=== PATIENT | female | born 1985 | race American Indian/Alaskan Native ===

== ENCOUNTER 2017-02-11 13:29 | Emergency (ER) | payer BC, MEDICAID ==
[2017-02-11 13:44] VITALS: BP 128/72
--- NOTE | 2017-02-11 14:34 | Cat Scan Report ---
FINAL REPORT EXAM: CT HEAD/BRAIN WO CON HISTORY: HEAD INJURY / DIZZINESS TECHNIQUE: CT examination of the head without IV contrast PRIORS: None. FINDINGS: Mastoid air cells and middle ear cavities are clear. No acute air-fluid level visualized in the included air-filled sinuses. Bone windows demonstrate no fracture. The brain is without mass, mass effect, hemorrhage, or acute infarct. There is no extra-axial intracranial bleed, brain bleed, or midline shift. The ventricles and sulci are age-appropriate. IMPRESSION: No acute CVA, intracranial bleed, or brain mass
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
== END 2017-02-11 15:23 | disposition home or self-care (01) ==
LOC: ED 13:29
DX: R51 Headache (principal); M43.6 Torticollis; J45.909 Unspecified asthma, uncomplicated; D64.9 Anemia, unspecified; Z87.891 Personal history of nicotine dependence; Z88.0 Allergy status to penicillin; V48.3XXA Unspecified car occupant injured in noncollision transport accident in nontraffic accident, initial encounter; Y93.89 Activity, other specified; Y99.8 Other external cause status; Y92.488 Other paved roadways as the place of occurrence of the external cause
CPT/HCPCS: 70450

== ENCOUNTER 2017-03-23 09:58 | Emergency (ER) | payer BC, MEDICAID ==
[2017-03-23 10:44] LABS: Basophils % (Auto) 0.3 % (0.0-1.8); Hematocrit 31.5 % (30.3-42.9); Hemoglobin 9.9 gm/dl (10.1-14.3); Mean Corpuscular HGB Conc 31 % (30-34); Mean Corpuscular Volume 81 fl (79-97); Platelet Count 215 K/mm3 (140-440); Red Cell Distribution Width 17.8 % (13.2-15.2); White Blood Count 8.4 K/mm3 (4.5-11.0)
[2017-03-23 10:52] LABS: Mean Corpuscular Hemoglobin 25 pg (28-32)
[2017-03-23 11:04] LABS: Anion Gap 17 mmol/L; Blood Urea Nitrogen 16 mg/dL (7-17); Calcium 8.6 mg/dL (8.4-10.2); Carbon Dioxide 24 mmol/L (22-30); Chloride 104.8 mmol/L (98-107); Glucose 96 mg/dL (65-100); Potassium 4.3 mmol/L (3.6-5.0); Sodium 141 mmol/L (137-145)
--- NOTE | 2017-03-23 12:04 | XRay Report ---
Chest 2 views: Compared to 08/04/16. History: Chest pain. Findings: Normal cardiomediastinal silhouette. Trachea is midline. No consolidation, pneumothorax or pleural effusion. Impression: No acute cardiopulmonary findings.
[2017-03-23 18:31] VITALS: BP 105/59
[2017-03-23] MEDS ORDERED: TORADOL IM ONE (18:31)
[2017-03-23] MEDS ORDERED: TYLENOL #3 PO ONE (18:31)
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
[2017-03-23] MEDS ORDERED: CARAFATE PO ONE (19:00)
== END 2017-03-23 20:00 | disposition home or self-care (01) ==
LOC: ED 09:58
DX: R07.89 Other chest pain (principal); J45.909 Unspecified asthma, uncomplicated; D64.9 Anemia, unspecified; Z88.0 Allergy status to penicillin
CPT/HCPCS: 36415; 71020; 80048; 84484; 85025; 93005; 93010; 96372; 99285; J1885

== ENCOUNTER 2018-11-27 08:17 | Emergency (ER) | payer BC ==
[2018-11-27 08:26] VITALS: BP 133/94
[2018-11-27] MEDS ORDERED: DUONEB *Not for PRN Use IH ONE ×2 (08:36→08:38)
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
--- NOTE | 2018-11-27 10:34 | Cat Scan Report ---
CT HEAD WITHOUT CONTRAST: HISTORY: Ground-level fall, loss of consciousness. TECHNIQUE: Sequential 2.5mm CT images. COMPARISON: 02/11/17. FINDINGS: Cerebral Parenchyma: Within normal limits. Cerebellum: Within normal limits. Brainstem: Within normal limits. Ventricles: Normal. Sella: Normal. Extra-axial spaces: Normal. Basal Cisterns: Normal. Intracranial Hemorrhage: None. Midline Shift: None. Calvarium: Normal. Sinuses: Normal. Mastoid Air Cells: Normal. Visualized Orbits: Normal. IMPRESSION: Cranial CT scan within normal limits.
== END 2018-11-27 11:15 | disposition home or self-care (01) ==
LOC: ED 08:17
DX: S05.10XA Contusion of eyeball and orbital tissues, unspecified eye, initial encounter (principal); J45.21 Mild intermittent asthma with (acute) exacerbation; Z88.0 Allergy status to penicillin; W01.0XXA Fall on same level from slipping, tripping and stumbling without subsequent striking against object, initial encounter; Y93.01 Activity, walking, marching and hiking; Y92.012 Bathroom of single-family (private) house as the place of occurrence of the external cause; Y99.8 Other external cause status
CPT/HCPCS: 70450; 71046; 94640

== ENCOUNTER 2019-05-24 12:45 | Emergency (ER) | payer BC ==
[2019-05-24 13:44] VITALS: BP 131/67
--- NOTE | 2019-05-24 13:47 | Event Note ---
ED Screening Note Date of service: 05/24/19 Time: 13:43 ED Screening Note: 34 y/o female c/o right knee and middle back pain s/p fall on Monday while at work. Was seen at [employer]. Had xray of right ankle and lower leg. This initial assessment/diagnostic orders/clinical plan/treatment(s) is/are subject to change based on patients health status, clinical progression and re- assessment by fellow clinical providers in the ED. Further treatment and workup at subsequent clinical providers discretion. Patient/guardian urged not to elope from the ED as their condition may be serious if not clinically assessed and managed. Initial orders include: Xray back and knee
--- NOTE | 2019-05-24 14:40 | XRay Report ---
Right knee, 3 views INDICATION: Pain after fall. COMPARISON: None. IMPRESSION: No acute osseous or soft tissue abnormality. No significant DJD. Signer Name: Henrry Montalvo Jr, MD Signed: 05/24/2019 2:36 PM Workstation Name: [id number]
--- NOTE | 2019-05-24 14:54 | XRay Report ---
THORACIC SPINE, 3 VIEWS INDICATION: fall back pain. COMPARISON: None. IMPRESSION: Normal alignment. No significant discogenic DJD or facet arthropathy. No acute osseous or soft tissue abnormality. Signer Name: Henrry Montalvo Jr, MD Signed: 05/24/2019 2:50 PM Workstation Name: [id number]
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
== END 2019-05-24 16:11 | disposition home or self-care (01) ==
LOC: ED 12:45
DX: S39.012A Strain of muscle, fascia and tendon of lower back, initial encounter (principal); S83.91XA Sprain of unspecified site of right knee, initial encounter; Z79.899 Other long term (current) drug therapy; Z79.1 Long term (current) use of non-steroidal anti-inflammatories (NSAID); Z88.0 Allergy status to penicillin; W08.XXXA Fall from other furniture, initial encounter; Y93.89 Activity, other specified; Y92.89 Other specified places as the place of occurrence of the external cause; Y99.8 Other external cause status
CPT/HCPCS: 72070; 99283

== ENCOUNTER 2019-06-14 09:50 | Emergency (ER) | payer BC ==
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
[2019-06-14 11:37] VITALS: BP 131/70
== END 2019-06-14 11:36 | disposition home or self-care (01) ==
LOC: ED 09:50
DX: M79.604 Pain in right leg (principal); J45.909 Unspecified asthma, uncomplicated; Z88.0 Allergy status to penicillin; Z79.1 Long term (current) use of non-steroidal anti-inflammatories (NSAID); Z79.899 Other long term (current) drug therapy
CPT/HCPCS: 99283

== ENCOUNTER 2019-07-16 19:52 | Emergency (ER) | payer OTHER, BC ==
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
--- NOTE | 2019-07-17 05:02 | Cat Scan Report ---
CT HEAD WITHOUT CONTRAST INDICATION: headache TECHNIQUE: All CT scans at this location are performed using CT dose reduction for ALARA by means of automated exposure control. COMPARISON: 11/27/2018 FINDINGS: BRAIN: No hemorrhage or mass effect are seen. No evidence of acute infarction is noted. ORBITS: Normal as visualized. SOFT TISSUES OF HEAD: Normal. CALVARIUM: Normal. VISUALIZED PARANASAL SINUSES AND MASTOID AIR CELLS: Clear. ADDITIONAL FINDINGS: None. IMPRESSION: No acute intracranial abnormality. Signer Name: Jin Grier MD Signed: 07/17/2019 4:57 AM Workstation Name: [id number]
== END 2019-07-17 05:20 | disposition home or self-care (01) ==
LOC: ED 19:52
DX: S09.90XA Unspecified injury of head, initial encounter (principal); M54.2 Cervicalgia; M54.5 Low back pain; J45.909 Unspecified asthma, uncomplicated; Z79.899 Other long term (current) drug therapy; Z88.0 Allergy status to penicillin; V89.2XXA Person injured in unspecified motor-vehicle accident, traffic, initial encounter; Y93.89 Activity, other specified; Y92.488 Other paved roadways as the place of occurrence of the external cause; Y99.8 Other external cause status
CPT/HCPCS: 70450; 72040; 72100; 99284